=== PATIENT | male | born 1990 | race Caucasian/White ===

== ENCOUNTER 2017-07-18 19:58 | Emergency (ER) | payer OTHER ==
[2017-07-18 20:28] VITALS: BP 126/68; PULSE 98; TEMP 100.1; BMI 25.8
== END 2017-07-18 22:22 | disposition left against medical advice (07) ==
LOC: JER 19:58
DX: Z53.21 Procedure and treatment not carried out due to patient leaving prior to being seen by health care provider (principal)
CPT/HCPCS: 99281-25

== ENCOUNTER 2017-09-01 16:13 | Emergency (ER) | payer OTHER ==
[2017-09-01 16:17] VITALS: BP 113/58; PULSE 69; TEMP 97.9; BMI 27.2
--- NOTE | 2017-09-01 16:25 | PDOC ---
History of Present Illness - General Chief Complaint: Cold Symptoms Stated Complaint: NAUSEA, LIGHTHEADED Time Seen by Provider: 09/01/17 16:24 History Source: Patient Exam Limitations: No Limitations - History of Present Illness Initial Comments: 09/01/17 16:25 Patient is a [27-year-old male, denies any significant medical history currently on no medication presents with 4 days of nasal congestion, nausea and headache. Green nasal drainage. No chills. No fever. NO chest pain or SOB. ] Past Medical History: [Denies]. Allergies: No known allergies Medications: [None] Family History: Non-contributory Social History: Denies smoking, alcohol use, or IVDU Review of Systems GENERAL/CONSTITUTIONAL: [No fever or chills. No weakness. No weight change.] HEAD, EYES, EARS, NOSE AND THROAT: [No change in vision. No ear pain or discharge. No sore throat. Nasal congestion, green drainage, sinus pain. ] CARDIOVASCULAR: [No chest pain or shortness of breath.] RESPIRATORY: [No cough, wheezing, or hemoptysis.] GASTROINTESTINAL: [No nausea, vomiting, diarrhea or constipation. No rectal bleeding.] GENITOURINARY: [No dysuria, frequency, or change in urination.] MUSCULOSKELETAL: [No joint or muscle swelling or pain. No neck or back pain.] SKIN AND BREASTS: [No rash or easy bruising.] NEUROLOGIC: [No headache, vertigo, loss of consciousness, or loss of sensation.] PSYCHIATRIC: [No depression or anxiety.] ENDOCRINE: [No increased thirst. No abnormal weight change.] HEMATOLOGIC/LYMPHATIC: [No anemia, easy bleeding, or history of blood clots.] ALLERGIC/IMMUNOLOGIC: [No hives or skin allergy. No latex allergy.] Physical Exam: GENERAL: [The patient is awake, alert, and fully oriented, in no acute distress. ] HEAD: [Normal with no signs of trauma.] EYES: [Pupils equal, round and reactive to light, extraocular movements intact, sclera anicteric, conjunctiva clear.] ENT: [Ears normal, nares are erythematous and edematous, frontal sinus pain, oropharynx clear without exudates. Moist mucous membranes. No uvula deviation] NECK: [Normal range of motion, supple without lymphadenopathy, JVD, or masses.] LUNGS: [Breath sounds equal, clear to auscultation bilaterally. No wheezes, and no crackles.] HEART: [Regular rate and rhythm, normal S1 and S2 without murmur, rub or gallop. ] ABDOMEN: [Soft, nontender, normoactive bowel sounds. No guarding, no rebound. No masses. No bruising or abrasions] MUSCULOSKELETAL: [Normal range of motion, no edema. No clubbing or cyanosis. No cords, erythema, or tenderness. No CVA Tenderness with fist.] NEUROLOGICAL: [Cranial nerves II through XII grossly intact. Normal speech, normal gait.] SKIN: [Warm, Dry, normal turgor, no rashes or lesions noted.] Past History - Past Medical History Allergies/Adverse Reactions: Allergies Allergy/AdvReac Type Severity Reaction Status Date / Time amoxicillin Allergy Mild Rash Verified 09/01/17 16:14 Home Medications: Ambulatory Orders Doxycycline Hyclate 100 mg PO BID #20 tablet 09/01/17 COPD: No - Suicide/Smoking/Psychosocial Hx Smoking History: Current every day smoker Have you smoked in the past 12 months: Yes Number of Cigarettes Smoked Daily: 5 Information on smoking cessation initiated: Yes 'Breaking Loose' booklet given: 09/01/17 Hx Alcohol Use: No Drug/Substance Use Hx: No Substance Use Type: None *Physical Exam - Vital Signs Last Vital Signs Temp Pulse Resp BP Pulse Ox 97.9 F 69 18 113/58 100 09/01/17 16:15 09/01/17 16:15 09/01/17 16:15 09/01/17 16:15 09/01/17 16:15 Medical Decision Making - Medical Decision Making 09/01/17 16:41 A/P: Patient with clinical signs of sinusitis. Will DC on doxy, follow up with MD. *DC/Admit/Observation/Transfer Diagnosis at time of Disposition: Sinusitis Qualifiers: Sinusitis location: frontal Chronicity: acute Recurrence: non-recurrent Qualified Code(s): J01.10 - Acute frontal sinusitis, unspecified - Discharge Dispostion Disposition: HOME Condition at time of disposition: Stable Admit: No - Prescriptions Prescriptions: Doxycycline Hyclate 100 mg PO BID #20 tablet - Referrals Referrals: Ted Suárez MD [Staff Physician] - - Patient Instructions Printed Discharge Instructions: Sinusitis, Sinus Headache Additional Instructions: Please follow up with PMD in 2 days if symptoms do not start to resolve, Motrin for fever and pain. Increase fluid intake. - Post Discharge Activity
== END 2017-09-01 16:52 | disposition home or self-care (01) ==
LOC: JERFT 16:13
DX: J01.10 Acute frontal sinusitis, unspecified (principal); F17.210 Nicotine dependence, cigarettes, uncomplicated; Z88.1 Allergy status to other antibiotic agents
CPT/HCPCS: 99281-25

== ENCOUNTER 2022-07-01 06:18 | Emergency (ER) | payer OTHER ==
[2022-07-01 06:34] VITALS: BP 114/64; PULSE 66; RESP 18; TEMP 97.8; BMI 23.6
[2022-07-01] MEDS ORDERED: ACETAMINOPHEN 500 MG TABLET (FP) PO ONE (08:12)
[2022-07-01 08:15] LABS: CALCIUM 9.3 mg/dL (8.5-10.1)
[2022-07-01 08:16] LABS: ALBUMIN 4.1 g/dl (3.4-5.0); BLOOD UREA NITROGEN 10.7 mg/dL (7-18)
[2022-07-01] MEDS ORDERED: ACETAMINOPHEN 500 MG TABLET (FP) ONE (08:18)
[2022-07-01 08:19] LABS: CREATININE 0.8 mg/dL (0.55-1.3)
[2022-07-01 08:21] LABS: BASO % 0.3 % (0-2.0); BILIRUBIN,TOTAL 0.7 mg/dL (0.2-1); EOS % 1.7 % (0-4.5); HEMATOCRIT 40.2 % (35.4-49); HEMOGLOBIN 13.5 GM/dL (11.7-16.9); MCH 30.5 pg (25.7-33.7); MCHC 33.7 g/dl (32.0-35.9); MEAN CELL VOLUME 90.8 fl (80-96); MEAN PLT VOLUME 10.6 fl (7.5-11.1); PLATELET COUNT 215 10^3/uL (134-434); RBC 4.43 M/mm3 (4.00-5.60); RDW 12.8 % (11.9-15.9); TOT PROT 7.4 g/dl (6.4-8.2); WHITE BLOOD COUNT 7.4 K/mm3 (4.0-10.0)
[2022-07-01 08:33] LABS: INR 1.21 (0.83-1.09); PROTHROMBIN TIME (PATIENT) 13.9 SEC (9.7-13.0)
== END 2022-07-01 09:27 | disposition home or self-care (01) ==
LOC: JER 06:18
DX: R00.1 Bradycardia, unspecified (principal)
CPT/HCPCS: 36415; 71046-TC-FY; 80053; 84484; 85025; 85610; 99285-25

== ENCOUNTER 2023-04-01 14:15 | Emergency (ER) | payer OTHER ==
[2023-04-01 14:21] VITALS: BP 104/60; PULSE 69; RESP 17; TEMP 98.4; BMI 25.1
[2023-04-01] MEDS ORDERED: KETOROLAC TROMETHAMINE 30 MG/1 ML VIAL IM ONE (16:20)
[2023-04-01] MEDS ORDERED: ACETAMINOPHEN 500 MG TABLET (FP) PO ONE (16:20)
[2023-04-01] MEDS ORDERED: LIDOCAINE 5% TOPICAL PATCH TP ONE (16:20)
[2023-04-01] MEDS ORDERED: CYCLOBENZAPRINE HCL 10 MG TABLET (FP) PO ONE (16:20)
[2023-04-01] MEDS ORDERED: CYCLOBENZAPRINE HCL 10 MG TABLET (FP) ONE (16:22)
[2023-04-01] MEDS ORDERED: LIDOCAINE 5% TOPICAL PATCH ONE (16:22)
[2023-04-01] MEDS ORDERED: KETOROLAC TROMETHAMINE 30 MG/1 ML VIAL ONE (16:23)
[2023-04-01] MEDS ORDERED: ACETAMINOPHEN 500 MG TABLET (FP) ONE (16:23)
[2023-04-01] MEDS ORDERED: LIDOCAINE PATCH REMOVAL MC ONE (22:00)
== END 2023-04-01 17:38 | disposition home or self-care (01) ==
LOC: JERFT 14:15
PROC: 3E0233Z Introduction of Anti-inflammatory into Muscle, Percutaneous Approach (ICD-10-PCS; principal; 2023-04-01)
DX: M54.50 Low back pain, unspecified (principal); M54.2 Cervicalgia; M54.6 Pain in thoracic spine; R51.9 Headache, unspecified; V43.52XA Car driver injured in collision with other type car in traffic accident, initial encounter; Y93.I9 Activity, other involving external motion
CPT/HCPCS: 72100-TC-FY; 99284-25

== ENCOUNTER 2023-04-10 02:28 | Emergency (ER) | payer OTHER ==
[2023-04-10 02:32] VITALS: BP 111/76; PULSE 57; RESP 18; TEMP 98.7; BMI 28.0
[2023-04-10] MEDS ORDERED: KETOROLAC TROMETHAMINE 15 MG/ML VIAL IM ONE (03:42)
[2023-04-10] MEDS ORDERED: ACETAMINOPHEN 325 MG TABLET (FP) PO ONE (03:42)
[2023-04-10] MEDS ORDERED: LIDOCAINE 5% TOPICAL PATCH TP ONE (03:42)
[2023-04-10] MEDS ORDERED: ACETAMINOPHEN 325 MG TABLET (FP) ONE (03:44)
[2023-04-10] MEDS ORDERED: KETOROLAC TROMETHAMINE 15 MG/ML VIAL ONE (03:45)
[2023-04-10] MEDS ORDERED: LIDOCAINE 4% PATCH TP ONE (03:45)
[2023-04-10] MEDS ORDERED: LIDOCAINE PATCH REMOVAL MC SCH (22:00)
== END 2023-04-10 04:19 | disposition home or self-care (01) ==
LOC: JER 02:28
PROC: 3E0233Z Introduction of Anti-inflammatory into Muscle, Percutaneous Approach (ICD-10-PCS; principal; 2023-04-10)
DX: M54.50 Low back pain, unspecified (principal); V49.40XA Driver injured in collision with unspecified motor vehicles in traffic accident, initial encounter; Y92.410 Unspecified street and highway as the place of occurrence of the external cause
CPT/HCPCS: 99284-25

== ENCOUNTER 2023-07-25 18:34 | Emergency (ER) | payer OTHER ==
[2023-07-25 18:47] VITALS: TEMP 98.2; BMI 25.1
[2023-07-25 21:09] LABS: BASO % 0.3 % (0-2.0); EOS % 1.8 % (0-4.5); HEMATOCRIT 40.8 % (35.4-49); LYMPH % 25.7 % (8-40); MCH 31.5 pg (25.7-33.7); MCHC 34.4 g/dl (32.0-35.9); MEAN CELL VOLUME 91.6 fl (80-96); MEAN PLT VOLUME 9.5 fl (7.5-11.1); NEUT % 63.2 % (42.8-82.8); PLATELET COUNT 215 10^3/uL (134-434); RBC 4.46 M/mm3 (4.00-5.60); RDW 13.3 % (11.9-15.9); WHITE BLOOD COUNT 8.9 K/mm3 (4.0-10.0)
[2023-07-25 21:16] LABS: INR 1.12 (0.83-1.09)
[2023-07-25 21:18] LABS: ACTIVATED PTT 33.6 SECONDS (25.2-36.5)
[2023-07-25 21:40] LABS: POTASSIUM 4.3 mmol/L (3.5-5.1)
[2023-07-25 21:42] LABS: ALBUMIN 4.1 g/dl (3.4-5.0); BLOOD UREA NITROGEN 15.1 mg/dL (7-18); CALCIUM 9.8 mg/dL (8.5-10.1)
[2023-07-25 21:46] LABS: CREATININE 0.7 mg/dL (0.55-1.3)
[2023-07-25 21:47] LABS: BILIRUBIN,TOTAL 0.4 mg/dL (0.2-1); TOT PROT 7.6 g/dl (6.4-8.2)
[2023-07-25 23:09] VITALS: BP 105/59; PULSE 63; RESP 16
== END 2023-07-25 23:10 | disposition home or self-care (01) ==
LOC: JER 18:34
DX: R14.0 Abdominal distension (gaseous) (principal); K59.00 Constipation, unspecified; R19.7 Diarrhea, unspecified; R10.11 Right upper quadrant pain; R10.31 Right lower quadrant pain
CPT/HCPCS: 36415; 80053; 82272; 85025; 85610; 85730; 99283-25